=== PATIENT | male | born 1980 | race African-American/Black ===

== ENCOUNTER 2022-10-17 11:50 | Emergency (ER) | payer BC, MEDICAID ==
[~2022-10-17] VITALS: Ht 170.2 cm; Wt 95.0 kg
[2022-10-17 12:04] VITALS: O2SAT 99
[2022-10-17] MEDS ORDERED: KETOROLAC 15MG/ML VIAL IM ONE (12:30)
[2022-10-17] MEDS ORDERED: T3 PO (16:10)
[2022-10-17] MEDS ORDERED: NAPR500T7 MT (16:10)
[2022-10-17] MEDS ORDERED: ACET-2708 MT (16:11)
[2022-10-17 16:30] VITALS: BP 145/86; PULSE 79; RESP 18; TEMP 98.7
== END 2022-10-17 16:31 | disposition home or self-care (01) ==
LOC: ER 11:55
DX: S86.012A Strain of left Achilles tendon, initial encounter (principal); I10 Essential (primary) hypertension; X58.XXXA Exposure to other specified factors, initial encounter; Y93.89 Activity, other specified; Y92.89 Other specified places as the place of occurrence of the external cause; Y99.8 Other external cause status
CPT/HCPCS: 76881; 29515; 96372; 99285; J1885; Z7610